=== PATIENT | male | born 1980 | race Caucasian/White ===

== ENCOUNTER 2017-11-10 00:21 | Emergency (ER) | payer OTHER ==
[2017-11-10 00:52] VITALS: RESP 16; O2SAT 97
[2017-11-10] MEDS ORDERED: Sodium Chloride 0.9% 1,000 ML IV ONE (00:54)
--- NOTE | 2017-11-10 00:55 | C.PDOC ---
History Of Present Illness 37 yo male come in for evaluation of left flank pain gradually developed for past 4 days. Pt reports, was seen by PMD 4 days ago, had CT abd (+) Left kidney stones, measured 2 mm. Pt reports, since then, pain is intermittent over Left flank radiating down to left groin area. Pt admits, received Rx: Flomax and pain medication. Unfortunately, pain medication down not improved flank pain, left. Otherwise, pt denies fever, chills, CP, SOB, abd. pain, N/V/D, UTI sx, urinary retention. Ambulate to Ed for evaluation, not in any apparent distress. Time Seen by Provider: 11/10/17 00:36 Chief Complaint (Nursing): Back Pain History Per: Patient Onset/Duration Of Symptoms: Intermittent Episodes Past Medical History Reviewed: Historical Data, Nursing Documentation, Vital Signs Vital Signs: Last Vital Signs Temp 98.4 F 11/10/17 03:35 Pulse 88 11/10/17 03:35 Resp 16 11/10/17 03:35 BP 128/76 11/10/17 03:35 Pulse Ox 97 11/10/17 03:35 - Medical History PMH: Kidney Stones, Chronic Kidney Disease Family History: States: No Known Family Hx - Social History Hx Alcohol Use: No Hx Substance Use: No Review Of Systems Except As Marked, All Systems Reviewed And Found Negative. Constitutional: Negative for: Fever, Chills ENT: Negative for: Throat Pain Cardiovascular: Negative for: Chest Pain Respiratory: Negative for: Cough, Shortness of Breath Gastrointestinal: Negative for: Nausea, Vomiting, Abdominal Pain, Diarrhea Genitourinary: Negative for: Dysuria, Frequency, Incontinence Musculoskeletal: Positive for: Back Pain Skin: Negative for: Rash Neurological: Negative for: Altered Mental Status, Headache, Dizziness Physical Exam - Physical Exam Appears: Well, Non-toxic, No Acute Distress Skin: Normal Color, Warm, Dry, No Rash Head: Normacephalic Eye(s): bilateral: PERRL Nose: No Flaring, No Discharge Throat: No Erythema, No Drooling Neck: Trachea Midline, Supple Cardiovascular: Rhythm Regular, No Murmur Respiratory: No Decreased Breath Sounds, No Accessory Muscle Use, No Stridor, No Wheezing Gastrointestinal/Abdominal: Soft, No Tenderness, No Distention, No Guarding, No Rebound Back: No CVA Tenderness, No Vertebral Tenderness, No Paraspinal Tenderness, Other (Left flank tenderness, mild) Extremity: Normal ROM, No Pedal Edema, No Deformity, No Swelling Neurological/Psych: Oriented x3, Normal Speech ED Course And Treatment - Laboratory Results Result Diagrams: 11/10/17 01:03 11/10/17 01:03 Lab Interpretation: No Acute Changes O2 Sat by Pulse Oximetry: 97 Pulse Ox Interpretation: Normal Progress Note: On re-evaluation, pt is afebrile, hemodynamicaly stable. Non- toxic. Pt reports, moderate improvement in pain. Neck: Supple, (-) JVD, (-) carotid bruits B/L. ENT: no acute findings. Uvula midline, no edema. Lungs: CTA B/L, BS equal B/L. ABd: benign, (-) guarding, (-) rebound. Back: (-) CVA tenderness. Neurologicaly intact. No imaging ordered since pt had [address] renal with results (+) 2mm stones, non-obstructing, no evidence of urinary retention. US is not avaiable at present time. Pt has clinical findings c/w Left side kidney stone colicky. ref. to f/u with Urology in 1-2 days for re- eval. return to ED if any worsening or new changes. Disposition Counseled Patient/Family Regarding: Diagnosis, Need For Followup, Rx Given - Disposition Referrals: Tanna Zavala MD [Staff Provider] - Disposition: HOME/ ROUTINE Disposition Time: 02:40 Condition: STABLE Additional Instructions: Continue medication as initiated by PMD ( FLomax), pain medication as need urinary strain Follow up with Urology in 1-2 days for re-evaluation. return to ED if any worsening or new changes. Prescriptions: oxyCODONE/Acetaminophen [Percocet 5/325 mg Tab] 1 tab PO BID PRN #7 tab PRN Reason: Pain Instructions: Kidney Stones in Adults Forms: [facility] ([facility]ami) - Clinical Impression Clinical Impression: Kidney stone
[2017-11-10 01:06] LABS: BASO # 0.1 K/uL (0.0-0.2); BASO % 0.6 % (0.0-2.0); EOS # 0.1 K/uL (0.0-0.7); EOS % 0.9 % (0.0-4.0); HEMOGLOBIN 13.6 g/dL (12.0-18.0); LYMPH % 15.1 % (20.0-40.0); MEAN CELL VOLUME 79.3 fL (80.0-94.0); MEAN CORPUSCULAR HEMOGLOBIN 27.7 pg (27.0-31.0); MEAN CORPUSCULAR HGB CONC 34.9 g/dL (33.0-37.0); MONO # 1.5 K/uL (0.0-0.8); MONO % 11.3 % (0.0-10.0); NEUT # 9.6 K/uL (1.8-7.0); NEUT % 72.1 % (50.0-75.0); RBC 4.92 Mil/uL (4.40-5.90); RED CELL DISTRIBUTION WIDTH 13.2 % (11.5-14.5); WHITE BLOOD COUNT 13.2 K/uL (4.8-10.8)
[2017-11-10 01:19] LABS: ALB/GLOB RATIO 1.3 (1.0-2.1); ALBUMIN 4.1 g/dL (3.5-5.0); ALT/SGPT 37 U/L (21-72); AST/SGOT 45 U/L (17-59); BLOOD UREA NITROGEN 7 mg/dL (9-20); CALCIUM 8.6 mg/dl (8.6-10.4); GFR AFRICAN-AMERICAN > 60; GFR NON-AFRICAN AMERICAN > 60
[2017-11-10 02:05] LABS: URINE BILIRUBIN NEGATIVE (NEGATIVE); URINE BLOOD 1+ (NEGATIVE); URINE CLARITY Clear (Clear); URINE COLOR Colorless (YELLOW); URINE GLUCOSE (UA) NORMAL (Normal); URINE LEUKOCYTE ESTERASE NEG Leu/uL (Negative); URINE PROTEIN NEGATIVE (NEGATIVE); URINE UROBILINOGEN NORMAL mg/dL (0.2-1.0)
[2017-11-10 03:36] VITALS: BP 128/76; PULSE 88; TEMP 98.4
== END 2017-11-10 03:34 | disposition home or self-care (01) ==
LOC: C.ER 00:21
DX: N20.0 Calculus of kidney (principal); N18.9 Chronic kidney disease, unspecified
CPT/HCPCS: 80053; 81001; 85025; 96374; 99283; J1885; J7030